=== PATIENT | male | born 1950 | race Caucasian/White ===

== ENCOUNTER 2024-05-19 06:05 | Inpatient (IN) | payer OTHER ==
[2024-05-19 06:38] VITALS: BMI 24.9
[2024-05-19] MEDS: chlordiazePOXIDE HCL 25 MG CAPSULE PO ONE ×2 (06:39→20:48)
[2024-05-19 07:46] LABS: HEMATOCRIT 37.6 % (35.4-49); HEMOGLOBIN 12.6 G/dL (11.7-16.9); MCH 31.9 pg (25.7-33.7); MCHC 33.5 g/dl (32.0-35.9); MEAN CELL VOLUME 95.1 fl (80-96); MEAN PLT VOLUME 10.4 fl (7.5-11.1); PLATELET COUNT 71.9 10^3/uL (134-434); RBC 3.95 10^6/uL (4.00-5.60); RDW 16.2 % (11.9-15.9); WHITE BLOOD COUNT 5.5 10^3/uL (4.0-10.8)
[2024-05-19 07:47] LABS: INR 1.01 (0.83-1.09); PROTHROMBIN TIME (PATIENT) 11.5 SEC (9.7-13.0)
[2024-05-19 08:43] LABS: PLATELET ESTIMATE DECREASED
[2024-05-19 09:04] LABS: ALBUMIN 4.2 g/dl (3.4-5.0); ALK PHOS 71 U/L (45-117); ANION GAP 16 mmol/L (4-13); BILIRUBIN,TOTAL 2.7 mg/dl (0.2-1); CALCIUM 9.2 mg/dl (8.5-10.1); CHLORIDE 97 mmol/L (98-107); CO2 23 mmol/L (21-32); CREATININE 0.9 mg/dl (0.6-1.3); GLUCOSE,RANDOM 142 mg/dl (74-106); SGOT/AST 75 U/L (15-37); SGPT/ALT 53 U/L (7-52); SODIUM 136 mmol/L (136-145); TOT PROT 6.4 g/dl (6.4-8.2)
[2024-05-19 09:05] LABS: POTASSIUM 4.4 mmol/L (3.5-5.1)
[2024-05-19] MEDS ORDERED: diazePAM CARPU-JECT 10 MG/2 ML DISP.SYRIN ONE (09:12)
[2024-05-19] MEDS: diazePAM CARPU-JECT 10 MG/2 ML DISP.SYRIN IVPUSH ONE (09:17)
[2024-05-19] MEDS ORDERED: ASPIRIN 81 MG CHEWABLE TABLETS ONE (09:18)
[2024-05-19] MEDS: ASPIRIN 81 MG CHEWABLE TABLETS PO ONE (09:20)
[2024-05-19 10:00] LABS: INR 1.01 (0.83-1.09); PROTHROMBIN TIME (PATIENT) 11.5 SEC (9.7-13.0)
[2024-05-19 10:03] LABS: ACTIVATED PTT 28.5 SECONDS (25.2-36.5)
[2024-05-19] MEDS ORDERED: ATORVASTATIN CA 20 MG TABLET (FP) ONE (10:07)
[2024-05-19] MEDS: ATORVASTATIN CA 40 MG TABLET (FP) PO SCH (10:09)
[2024-05-19 10:16] LABS: HEMATOCRIT 35.3 % (35.4-49); HEMOGLOBIN 12.1 G/dL (11.7-16.9); MCH 32.3 pg (25.7-33.7); MCHC 34.3 g/dl (32.0-35.9); MEAN CELL VOLUME 94.2 fl (80-96); RBC 3.75 10^6/uL (4.00-5.60); RDW 15.8 % (11.9-15.9); WHITE BLOOD COUNT 4.5 10^3/uL (4.0-10.8)
[2024-05-19 10:19] LABS: BILIRUBIN,TOTAL 2.5 mg/dl (0.2-1); CALCIUM 8.8 mg/dl (8.5-10.1); CREATININE 0.9 mg/dl (0.6-1.3); MAGNESIUM 1.4 mg/dL (1.8-2.4); POTASSIUM 3.8 mmol/L (3.5-5.1)
[2024-05-19 10:31] LABS: PLATELET ESTIMATE DECREASED
[2024-05-19] MEDS: THIAMINE 100 MG TABLET PO SCH (10:56)
[2024-05-19] MEDS: MULTIVITAMINS (DAILY MVI) TABLET (FP) PO SCH (10:56)
[2024-05-19] MEDS: FOLIC ACID 1 MG TABLET (FP) PO SCH (10:56)
[2024-05-19] MEDS: VALSARTAN 80 MG TABLET PO SCH (11:00)
[2024-05-20] MEDS ORDERED: REGADENOSON 0.4 MG/5 ML PRE-FILLED SYRINGE IVPUSH ONE (09:42)
[2024-05-20] MEDS: REGADENOSON 0.4 MG/5 ML PRE-FILLED SYRINGE IVPUSH ONE (10:40)
[2024-05-20] MEDS: ASPIRIN 81 MG CHEWABLE TABLETS PO SCH (12:48)
[2024-05-20] MEDS: APIXABAN 5 MG TABLET PO SCH (12:48)
[2024-05-20] MEDS: PANTOPRAZOLE 40 MG TABLET PO SCH (12:48)
[2024-05-20] MEDS: LORazepam 1 MG TABLET PO PRN (12:57)
[2024-05-20] MEDS: VALSARTAN 80 MG TABLET PO ONE (12:57)
[2024-05-21 08:53] LABS: ALBUMIN 4.2 g/dl (3.4-5.0); BILIRUBIN,TOTAL 1.7 mg/dl (0.2-1); CALCIUM 9.5 mg/dl (8.5-10.1); CREATININE 0.9 mg/dl (0.6-1.3); POTASSIUM 4.1 mmol/L (3.5-5.1); TOT PROT 6.4 g/dl (6.4-8.2)
[2024-05-21] MEDS: VALSARTAN 160 MG TABLET PO SCH (10:17)
[2024-05-21 10:26] LABS: HEMATOCRIT 43.3 % (35.4-49); HEMOGLOBIN 14.2 GM/dL (11.7-16.9); MCH 30.5 pg (25.7-33.7); MCHC 32.7 g/dl (32.0-35.9); MEAN CELL VOLUME 93.3 fl (80-96); MEAN PLT VOLUME 9.2 fl (7.5-11.1); PLATELET COUNT 66 10^3/uL (134-434); RBC 4.64 M/mm3 (4.00-5.60); RDW 16.7 % (11.9-15.9); WHITE BLOOD COUNT 6.3 K/mm3 (4.0-10.0)
[2024-05-22 08:18] LABS: HEMATOCRIT 41.9 % (35.4-49); HEMOGLOBIN 14.3 G/dL (11.7-16.9); MCH 32.3 pg (25.7-33.7); MCHC 34.2 g/dl (32.0-35.9); MEAN CELL VOLUME 94.5 fl (80-96); MEAN PLT VOLUME 10.2 fl (7.5-11.1); PLATELET COUNT 67.4 10^3/uL (134-434); RBC 4.43 10^6/uL (4.00-5.60); WHITE BLOOD COUNT 5.7 10^3/uL (4.0-10.8)
[2024-05-22 08:42] LABS: ALBUMIN 3.9 g/dl (3.4-5.0); CALCIUM 9.1 mg/dl (8.5-10.1); CREATININE 0.9 mg/dl (0.6-1.3); TOT PROT 6.1 g/dl (6.4-8.2)
[2024-05-22 10:55] LABS: BILIRUBIN,TOTAL 1.3 mg/dl (0.2-1)
[2024-05-22 11:21] LABS: PLATELET ESTIMATE SLT DECREASE
[2024-05-23 01:58] VITALS: RESP 18
[2024-05-23 08:02] LABS: HEMATOCRIT 39.4 % (35.4-49); HEMOGLOBIN 13.3 G/dL (11.7-16.9); MCH 31.8 pg (25.7-33.7); MCHC 33.8 g/dl (32.0-35.9); MEAN CELL VOLUME 94.3 fl (80-96); MEAN PLT VOLUME 10.5 fl (7.5-11.1); PLATELET COUNT 88.8 10^3/uL (134-434); RBC 4.18 10^6/uL (4.00-5.60); RDW 15.5 % (11.9-15.9); WHITE BLOOD COUNT 5.8 10^3/uL (4.0-10.8)
[2024-05-23 08:30] LABS: CALCIUM 8.6 mg/dl (8.5-10.1); CREATININE 0.9 mg/dl (0.6-1.3); POTASSIUM 3.5 mmol/L (3.5-5.1)
[2024-05-23 09:45] VITALS: BP 123/57; PULSE 74; TEMP 97.3
== END 2024-05-23 13:36 | disposition home or self-care (01) | DRG 309 ==
LOC: FER 06:05 → FM/S 09:31
DX: I48.0 Paroxysmal atrial fibrillation (principal); F10.130 Alcohol abuse with withdrawal, uncomplicated; I24.89 Other forms of acute ischemic heart disease; E78.5 Hyperlipidemia, unspecified; R07.89 Other chest pain; I10 Essential (primary) hypertension
CPT/HCPCS: 36415; 71045-TC-FY; 71250-TC; 78452-TC; 80048; 80053; 82550; 82553; 83735; 84484; 85025; 85027; 85610; 85730; 93005; 93017; 97116-GP; 97162-GP; 99285-25; A9502; J2785